=== PATIENT | female | born 1985 | race Caucasian/White ===

== ENCOUNTER 2020-07-09 04:46 | Emergency (ER) | payer BC ==
[~2020-07-09] VITALS: Ht 172.7 cm; Wt 73.0 kg
[2020-07-09] MEDS ORDERED: ONDANSETRON HCL 4MG/2ML INJ IV STA (05:18)
[2020-07-09] MEDS ORDERED: MORPHINE SULFATE 4 MG/ML CPJ (NOT FOR IM USE) IV STA (05:18)
[2020-07-09] MEDS ORDERED: SODIUM CHLORIDE 0.9% 1,000 ML IV ONE (05:30)
[2020-07-09 05:35] LABS: BASOPHILS % 1.1 % (0.0-2.0); EOSINOPHILS % 0.2 % (0.0-5.0); HEMATOCRIT. 43.2 % (36.0-48.0); HEMOGLOBIN. 14.8 g/dL (12.0-16.0); LYMPHOCYTES % 29.5 % (20.0-50.0); MEAN CORPUSCULAR HEMOGLOBIN 34.1 pg (28.0-32.0); MEAN CORPUSCULAR VOLUME 99.6 fL (81.0-99.0); MONOCYTES % 12.6 % (2.0-8.0); NEUTROPHILS % 56.6 % (40.0-76.0); PLATELET 282 x1000/uL (130-400); RED BLOOD CELL COUNT 4.34 mill/uL (4.2-5.4); RED CELL DISTRIBUTION WIDTH 12.3 % (11.6-14.6)
[2020-07-09 05:42] LABS: CHLORIDE 107 mEq/L (98-107)
[2020-07-09 05:43] LABS: HCG SCREEN NEGATIVE
[2020-07-09] MEDS ORDERED: IOHEXOL-350 100 ML BOTTLE ONE (06:31)
[2020-07-09 09:30] VITALS: BP 157/101
[2020-07-09] MEDS ORDERED: ONDANSETRON HCL 4MG/2ML INJ IV ONE (09:30)
== END 2020-07-09 11:07 | disposition home or self-care (01) ==
LOC: ER 04:46
DX: R07.9 Chest pain, unspecified (principal); Z97.5 Presence of (intrauterine) contraceptive device
CPT/HCPCS: 36415; 71045; 71275; 80053; 83880; 84484; 84703; 85025; 85379; 93005; 96374; 96375; 96376; 99285; J2270; J2405; J7030; Q9967